=== PATIENT | female | born 1935 | race Caucasian/White ===

== ENCOUNTER 2018-03-16 10:58 | Emergency (ER) | payer MEDICARE ==
[~2018-03-16] VITALS: Ht 160 cm; Wt 90.7 kg
[~2018-03-16 10:58] MED LIST: ADULT LOW DOSE81 MG; ALPRAZOLAM 0.0.25 M1 PO; ALTACE10 M1; ALTACE10 M1 PO; ALTACE10 MG PO; AMBIEN 10 MG TA10 MG PO; ANTACID500 MG; ASPIR 8181 MG PO; ASPIRIN EC81 M1 PO; AZITHROMYCIN 2250 MG PO; BACTRIM DS TAB1 EACH PO; BONIVA150 MG PO; BUSPAR 5 MG TABL5 M1 PO; BUSPAR15 MG; BUSPIRONE HCL10 MG PO; CALCIUM; CALCIUM 600 +1 EAC5 PO; CALCIUM PO; CENTRUM TABLET1 EACH; COLACE100 MG PO; CRESTOR20 MG PO; ENOXAPARIN30 MG/0.3 SUBQ; FENTANYL PA25 MCG/HR TRANSDERM; GABAPENTIN 100100 MG PO; GLUCOPHAGE500 MG PO; HYDROCODON-ACE1 EAC8; IBUPROFEN 600600 M1 PO; LANTUS SUBQ; LEVOTHROID100 MC1 PO; LEVOTHYROID PO; LIDODERM 5%1 PATC1 TRANSDERM; LOPRESSOR100 M1 PO; LOPRESSOR100 MG PO; LYRICA 50 MG50 MG; LYRICA 50 MG50 MG PO; METFORMIN HCL500 M2 PO; NEURONTIN 300300 M1 PO; NEXIUM40 MG PO; NOVOLOG100 UNIT/1 SUBQ; PERCOCET 5-3251 EACH PO; PROCHLORPERAZINE5 M1 PO; STOOL SOFTENER240 MG; TAMSULOSIN HCL0.4 M1 PO; TIROSINT100 MCG; TOPROL XL100 MG; ULTRAM 50MG TAB50 MG PO; ZETIA10 MG PO; ZOFRAN ODT4 MG PO
[2018-03-16 11:27] LABS: ABSOLUTE BASOPHILS 0.1 thou/uL (0.0-0.2); ABSOLUTE EOSINOPHILS 0.2 thou/uL (0.0-0.7); ABSOLUTE LYMPHOCYTES 1.5 thou/uL (0.8-5.3); ABSOLUTE MONOCYTES 0.5 thou/uL (0.0-1.2); ABSOLUTE NEUTROPHILS 3.9 thou/uL (1.6-8.1); EOSINOPHILS 3.6 %; HEMATOCRIT 43.4 % (37.0-47.0); HEMOGLOBIN 14.4 gm/dL (12.0-15.0); LYMPHOCYTES 24.6 %; MCH 28.8 pg (26.0-34.0); MCHC 33.2 g/dL (28.0-37.0); MCV 86.8 fL (80.0-100.0); MPV 8.3 fl. (7.2-11.1); NUCLEATED RBCS 0 /100WBC; PLATELET COUNT* 272 thou/uL (150-400); POLYS 62.8 %; RDW-CV 14.5 % (10.5-14.5); WBC 6.2 thou/uL (4.0-11.0)
[2018-03-16 11:34] LABS: CALCIUM 9.9 mg/dL (8.5-10.1); CREATININE 0.5 mg/dL (0.6-1.3); POTASSIUM 4.2 mmol/L (3.5-5.1)
[2018-03-16 11:46] LABS: ALBUMIN 3.4 g/dL (3.4-5.0); TOTAL BILIRUBIN 0.3 mg/dL (<0.1-1.0); TOTAL PROTEIN 7.4 g/dL (6.4-8.2)
[2018-03-16] MEDS ORDERED: DOXYCYCLINE 10100 MG PO (11:57)
[2018-03-16] MEDS ORDERED: TESSALON PERLE100 MG PO (11:57)
[2018-03-16 12:51] VITALS: BP 152/52
--- NOTE | 2018-03-16 15:10 | EKG ---
[place] [address] ELECTROCARDIOGRAM REPORT Name: DONNA BRUNNER [facility] [id number] Admission: 03/16/18 Attend Phys: Discharge: 03/16/18 Date of : 35 Report #: [id number] THIS REPORT FOR: //name// [facility] ED Test Date: 2018-03-16 Test Time: 11:22:01 Pat Name: DONNA BRUNNER Department: Room: Gender: F Envelope Stuffer: RAEGAN Ayoub : 1935 Requested By: Sandoval Fraser Order Number: [id number] MD: Jefferson Lemons Measurements Intervals [place] Rate: 60 P: 53 MI: 155 QRS: 46 QRSD: 92 T: 83 QT: 446 QTc: 446 Interpretive Statements Sinus rhythm Consider left atrial enlargement Probable LVH with secondary repol abnrm Compared to ECG 08/09/2017 08:41:02 No significant changes Electronically Signed On 03-16-2018 15:10:36 CDT by Jefferson Lemons [email or web address] <ELECTRONICALLY SIGNED> By: Jefferson Lemons MD, [facility] 03/16/18 1510 1122 112 Jefferson Lemons MD, [facility] /EPI
== END 2018-03-16 12:52 | disposition home or self-care (01) ==
LOC: M.ERS 10:58
PROVIDERS: Nurse Practitioner Psychiatric/Mental Health
DX: J06.9 Acute upper respiratory infection, unspecified (principal); I10 Essential (primary) hypertension; E78.00 Pure hypercholesterolemia, unspecified; E03.9 Hypothyroidism, unspecified; K21.9 Gastro-esophageal reflux disease without esophagitis; E11.9 Type 2 diabetes mellitus without complications; Z79.4 Long term (current) use of insulin; Z88.8 Allergy status to other drugs, medicaments and biological substances; Z88.5 Allergy status to narcotic agent; Z88.0 Allergy status to penicillin

== ENCOUNTER 2018-04-29 07:15 | Outpatient (CLI) | payer MEDICARE ==
[~2018-04-29] VITALS: Ht 154.9 cm; Wt 93.0 kg
[~2018-04-29 07:15] MED LIST changes: +DOXYCYCLINE 10100 MG PO; +TESSALON PERLE100 MG PO
[2018-04-29 07:43] VITALS: BP 177/74
[2018-04-29 08:06] LABS: HEMATOCRIT 41.1 % (37.0-47.0); HEMOGLOBIN 13.5 gm/dL (12.0-15.0); MCH 28.7 pg (26.0-34.0); MCHC 32.8 g/dL (28.0-37.0); MCV 87.6 fL (80.0-100.0); RBC 4.69 mil/uL (4.20-5.00); RDW-CV 14.8 % (10.5-14.5); WBC 5.7 thou/uL (4.0-11.0)
[2018-04-29] MEDS ORDERED: FOSAMAX 70 MG T70 MG PO (08:06)
[2018-04-29 08:27] LABS: APTT 25.2 Seconds (25.0-31.3); PROTIME 9.8 Seconds (9.20-11.50)
[2018-04-29 08:34] LABS: ANION GAP 9 mmol/L (7-16); BUN 16 mg/dL (7-18); CALCIUM 8.5 mg/dL (8.5-10.1); CHLORIDE 102 mmol/L (98-107); CO2 27 mmol/L (21-32); CREATININE 0.7 mg/dL (0.6-1.3); GLUCOSE 394 mg/dL (70-99); POTASSIUM 4.2 mmol/L (3.5-5.1); SODIUM 138 mmol/L (136-145)
[2018-04-29 08:39] LABS: ALBUMIN 3.4 g/dL (3.4-5.0); ALKALINE PHOSPHATASE 120 U/L (46-116); CHOLESTEROL 185 mg/dL (<200); HDL CHOLESTEROL 54 mg/dL (>40); LDL CHOLESTEROL 112 mg/dL (<100); SERUM ASSESSMENT Clear; SGOT 22 U/L (15-37); SGPT 26 U/L (30-65); TC:HDL 3.4 Ratio (Not establshd); TOTAL BILIRUBIN 0.4 mg/dL (<0.1-1.0); TOTAL PROTEIN 7.2 g/dL (6.4-8.2); TRIGLYCERIDE 95 mg/dL (<150); VLDL 19 mg/dL (<40)
[2018-04-29 10:40] VITALS: BP 155/68
[2018-04-29 11:28] VITALS: BP 101/72
[2018-04-29 11:54] VITALS: BP 101/72
--- NOTE | 2018-04-29 13:41 | EKG ---
[place] [address] ELECTROCARDIOGRAM REPORT Name: DONNA BRUNNER Room: [address]#: [id number] Admission: 04/29/18 Attend Phys: Ricco Espinoza MD, Discharge: Date of : 35 Report #: [id number] THIS REPORT FOR: //name// [facility] Test Date: 2018-04-29 Test Time: 07:50:01 Pat Name: DONNA BRUNNER Department: Room: Gender: F Balloon Seller: : 1935 Requested By: Ricco Espinoza Order Number: [id number] Reading MD: Tobias Slade Measurements Intervals [place] Rate: 79 P: 60 MT: 154 QRS: 55 QRSD: 88 T: 92 QT: 416 QTc: 477 Interpretive Statements Sinus rhythm Abnormal R-wave progression, early transition Consider left ventricular hypertrophy Nonspecific T abnormalities, lateral leads Compared to ECG 03/16/2018 11:22:01 T-wave abnormality now present Electronically Signed On 04-29-2018 13:41:22 CDT by Tobias Slade [email or web address] <ELECTRONICALLY SIGNED> By: Tobias Slade MD, FACC 04/29/18 1341 0750 0750 Tobias Slade MD, FAC /EPI
--- NOTE | 2018-05-01 12:34 | NUR ---
Spoke with patient states she is doing well, no signs of infection of right groin cath site. Has all her medications. Did not have any questions or concerns.
--- NOTE | 2018-05-02 10:50 | CARD ---
[address] [address] CARDIAC CATH REPORT Name: DONNA BRUNNER [address] [id number] Admission: 04/29/18 Attend Phys: Ricco Espinoza MD, Discharge: Date of : 35 Report #: [id number] THIS REPORT FOR: //name// APPROVED REPORT Study performed: 04/29/2018 08:22:11 Patient Details Patient Status: Out-Patient Room #: The patient is a 83 year-old female Event Personnel Ricco Espinoza Coffee Farmer, Vania Bettencourt RN Tower Hand, Rashida Tariq RTR Monitor Procedures Performed Art Access - R femoral artery*; left heart catheterization left ventriculography and selective coronary arteriography Indication Positive stress test, Chest pain Risk Factors Obesity, Hypercholesterolemia, Hypertension Procedure Narrative The patient was brought electively to the Cardiac Catheterization Laboratory and was prepped and draped in a sterile manner. The right femoral was infiltrated with 1% Lidocaine subcutaneous anesthesia. A [place] 6 FR sheath was inserted into the RIGHT FEMORAL ARTERY. Coronary angiography was performed using coronary diagnostic catheters. The right coronary system was accessed and visualized with a 6FR JR 4 catheter. The left coronary system was accessed and visualized with a 6FR JL 4 catheter. The left ventricle was accessed and visualized with a 6FR PIGTAIL catheter. Left ventricular/Aortic Valve gradient assessed via catheter pullback. Closure device was deployed with a Fr Mynx 6Fr/7Fr. There was no hematoma. Intraoperative Conscious Sedation Sedation start time: 9:58 Case end Time: 10:22 Fentanyl 25 mcg Vers[place] 2 [place] [address] CARDIAC CATH REPORT Name: DONNA BRUNNER Room: [address]#: [id number] Admission: 04/29/18 Attend Phys: Ricco Espinoza MD, Discharge: Date of : 35 Report #: [id number] Fluoro Time: 2.8 minutes Dose: DAP 91936 cGycm2 681.25 mGy Contrast Type and Amount: Visipaque 140 ml Coronary Angiography The patient's coronary anatomy is right dominant. Diagnostic Cath Left Main 0% narrowing LAD 30% mid vessel narrowing Circumflex 30% mid vessel narrowing Right Coronary Dominant vessel with 30% mid vessel narrowing Hemodynamics The aortic pressure is 172/68 mmHg with a mean of 93 mmHg. The left ventricular pressure is 165/2 mmHg with a mean of mmHg. The left ventricular end diastolic pressure is 10 mmHg. Conclusion #1 modest atherosclerotic coronary artery disease characterized by the following A 30% mid LAD narrowing B 30% narrowing in the midportion of the circumflex C dominant right coronary artery with 30% mid vessel narrowing #2 normal left ventricular systolic function, estimated ejection fraction being 65% #3 moderate systemic systolic hypertension with normal left ventricular end-diastolic pressure at rest Recommendations Cardiac Risk Reduction Program Diagnostic Cath Approved by: Ricco Espinoza MD Date/Time: 05/02/18 1049 hrs. <ELECTRONICALLY SIGNED> By: Ricco Espinoza MD, FACC 05/02/18 1050 1050 1050Jodaniel Espinoza MD, FACC /INF
== END 2018-04-29 15:12 | disposition home or self-care (01) ==
LOC: M.CL 07:15 → M.TBA-CV 10:35 → M.CL 15:12
PROVIDERS: Internal Medicine
DX: I25.10 Atherosclerotic heart disease of native coronary artery without angina pectoris (principal); I10 Essential (primary) hypertension; E11.9 Type 2 diabetes mellitus without complications; E78.00 Pure hypercholesterolemia, unspecified; E66.09 Other obesity due to excess calories; E03.9 Hypothyroidism, unspecified; Z98.41 Cataract extraction status, right eye; Z98.42 Cataract extraction status, left eye; Z96.1 Presence of intraocular lens; Z96.649 Presence of unspecified artificial hip joint; Z90.710 Acquired absence of both cervix and uterus; Z79.899 Other long term (current) drug therapy; Z88.0 Allergy status to penicillin; Z88.8 Allergy status to other drugs, medicaments and biological substances; Z79.82 Long term (current) use of aspirin; Z79.4 Long term (current) use of insulin

== ENCOUNTER 2018-08-16 16:29 | Emergency (ER) | payer MEDICARE ==
[~2018-08-16] VITALS: Ht 157.5 cm; Wt 95.3 kg
[~2018-08-16 16:29] MED LIST changes: +FOSAMAX 70 MG T70 MG PO
[2018-08-16] MEDS ORDERED: KEFLEX500 M1 PO (17:24)
[2018-08-16 17:35] VITALS: BP 176/61
== END 2018-08-16 17:36 | disposition home or self-care (01) ==
LOC: M.ERS 16:29
DX: S91.332A Puncture wound without foreign body, left foot, initial encounter (principal); I10 Essential (primary) hypertension; E78.00 Pure hypercholesterolemia, unspecified; K21.9 Gastro-esophageal reflux disease without esophagitis; J45.909 Unspecified asthma, uncomplicated; E11.9 Type 2 diabetes mellitus without complications; Z96.649 Presence of unspecified artificial hip joint; Z79.4 Long term (current) use of insulin; Z88.0 Allergy status to penicillin; Z88.5 Allergy status to narcotic agent; Z88.8 Allergy status to other drugs, medicaments and biological substances; W46.0XXA Contact with hypodermic needle, initial encounter; Y93.89 Activity, other specified; Y92.89 Other specified places as the place of occurrence of the external cause; Y99.8 Other external cause status

== ENCOUNTER → 2019-05-13 | Outpatient (CLI) | payer MEDICARE ==
[~2019-05-13] MED LIST changes: +KEFLEX500 M1 PO
== END ==
LOC: M.RAD 10:13
DX: M16.12 Unilateral primary osteoarthritis, left hip (principal); Z96.642 Presence of left artificial hip joint

== ENCOUNTER 2019-10-18 08:01 | Inpatient (IN) | payer MEDICARE ==
[~2019-10-18] VITALS: Ht 154.9 cm; Wt 95.7 kg
[~2019-10-18 08:01] MED LIST changes: -LEVOTHYROID PO; +TIROSINT100 MCG PO
[2019-10-18 08:11] VITALS: BP 116/62
[2019-10-18 08:49] LABS: ABSOLUTE BASOPHILS 0.1 thou/uL (0.0-0.2); ABSOLUTE EOSINOPHILS 0.2 thou/uL (0.0-0.7); ABSOLUTE LYMPHOCYTES 0.9 thou/uL (0.8-5.3); ABSOLUTE MONOCYTES 0.3 thou/uL (0.0-1.2); BASOPHILS 1.2 %; EOSINOPHILS 3.3 %; HEMATOCRIT 40.9 % (37.0-47.0); HEMOGLOBIN 13.8 gm/dL (12.0-15.0); LYMPHOCYTES 14.2 %; MCH 29.4 pg (26.0-34.0); MCHC 33.8 g/dL (28.0-37.0); MCV 86.8 fL (80.0-100.0); MPV 8.5 fl. (7.2-11.1); NUCLEATED RBCS 0 /100WBC; PLATELET COUNT* 293 thou/uL (150-400); POLYS 76.3 %; RBC 4.71 mil/uL (4.20-5.00); RDW-CV 14.5 % (10.5-14.5); WBC 6.6 thou/uL (4.0-11.0)
[2019-10-18 08:54] LABS: CALCIUM 8.8 mg/dL (8.5-10.1); CREATININE 0.8 mg/dL (0.6-1.3); POTASSIUM 4.1 mmol/L (3.5-5.1)
[2019-10-18 09:03] LABS: APTT 24.7 Seconds (25.0-31.3); PROTIME 9.9 Seconds (9.20-11.50)
[2019-10-18 09:04] LABS: ALBUMIN 3.4 g/dL (3.4-5.0); TOTAL BILIRUBIN 0.3 mg/dL (<0.1-1.0); TOTAL PROTEIN 7.2 g/dL (6.4-8.2)
[2019-10-18 12:36] LABS: INFLUENZA A ANTIGEN Negative (Negative); INFLUENZA B ANTIGEN Negative (Negative)
[2019-10-18 16:03] LABS: CHOLESTEROL 154 mg/dL (<200); HDL CHOLESTEROL 50 mg/dL (>40); LDL CHOLESTEROL 88 mg/dL (<100); SERUM ASSESSMENT Clear; TC:HDL 3.1 Ratio (Not establshd); TRIGLYCERIDE 82 mg/dL (<150); VLDL 16 mg/dL (<40)
[2019-10-18 16:19] VITALS: BP 189/56
--- NOTE | 2019-10-18 17:02 | 2DMMODE ---
[place] [address] 2 D/M-MODE ECHOCARDIOGRAM Name: DONNA BRUNNER Room: [place] [address] ADM IN .R.#: [id number] Admission: 10/18/19 Attend Phys: Elpidio Lay, Discharge: Date of : 35 Date of Service: 10/18/19 170 Report #: [id number] THIS REPORT FOR: //name// APPROVED REPORT Study performed: 10/18/2019 14:49:30 EXAM: Comprehensive 2D, Doppler, and color-flow Echocardiogram Patient Location: Bedside BSA: 1.93 HR: 79 bpm BP: 174/82 mmHg Other Information Study Quality: Fair Indications Dyspnea 2D Dimensions IVSd: 14.08 (7-11mm) LVOT Diam: 17.52 (18-24mm) LVDd: 45.49 mm PWd: 12.16 (7-11mm) Ascending Ao: 29.33 (22-36mm) LVDs: 29.91 (25-40mm) Aortic Root: 27.88 mm Volumes Left Atrial Volume (Systole) LA ESV Index: 34.60 mL/m2 Aortic Valve AoV Peak Aldair.: 1.87 m/s AO Peak Gr.: 13.95 mmHg LVOT Max P.31 mmHg AO Mean Gr.: 7.07 mmHg LVOT Mean P.86 mmHg LVOT Max V: 1.26 m/s AO V2 VTI: 37.69 cm LVOT Mean V: 0.76 m/s ROMELIA (VTI): 1.85 cm2 LVOT V1 VTI: 28.93 cm Mitral Valve MV Mean Gr.: 3.84 mmHg E/A Ratio: 1.24 MV Decel. Time: 223.77 ms MV E Max Aldair.: 1.44 m/s MV PHT: 64.89 ms MVA (PHT): 3.39 [place]2 [place] [address] 2 D/M-MODE ECHOCARDIOGRAM Name: DONNA BRUNNER Room: [address] IN [facility].#: [id number] Admission: 10/18/19 Attend Phys: Elpidio Lay, Discharge: Date of : 35 Date of Service: 10/18/19 170 Report #: [id number] TDI E/Lateral E': 24.00 E/Medial E': 28.80 Medial E' Aldair.: 0.05 m/s Lateral E' Aldair.: 0.06 m/s Pulmonary Valve PV Peak Aldair.: 0.88 m/s PV Peak Gr.: 3.08 mmHg Tricuspid Valve RAP Estimate: 5.00 mmHg TR Peak Gr.: 29.98 mmHg RVSP: 34.98 mmHg PA Pressure: 34.98 mmHg Left Ventricle The left ventricle is normal size. There is normal LV segmental wall motion. Mild concentric left ventricular hypertrophy. Left ventricular systolic function is normal. The left ventricular ejection fraction is within the normal range. LVEF is 55-60%. The left ventricular diastolic function is normal. Right Ventricle The right ventricle is normal size. The right ventricular systolic function is normal. Atria Left atrium is mildly dilated. The right atrium size is normal. Aortic Valve The aortic valve is normal in structure. No aortic regurgitation is present. There is no aortic valvular stenosis. Mitral Valve Severe mitral annular calcification. There is no mitral valve regurgitation noted. No evidence of mitral valve stenosis. Tricuspid Valve The tricuspid valve is normal in structure. Trace tricuspid regurgitation. Pulmonic Valve The pulmonary valve is normal in structure. There is no pulmonic valvular regurgitation[place] [address] 2 D/M-MODE ECHOCARDIOGRAM Name: DONNA BRUNNER Room: [address] IN [facility]#: [id number] Admission: 10/18/19 Attend Phys: Elpidio Lay, Discharge: Date of : 35 Date of Service: 10/18/19 1701 Report #: [id number] The aortic root is normal in size. IVC is normal in size and collapses >50% with inspiration. Pericardium There is no pericardial effusion. <Conclusion> The left ventricle is normal size. Mild concentric left ventricular hypertrophy. Left ventricular systolic function is normal. The left ventricular ejection fraction is within the normal range. LVEF is 55-60%. The left ventricular diastolic function is normal. The right ventricle is normal size. Left atrium is mildly dilated. The right atrium size is normal. The aortic valve is normal in structure. Severe mitral annular calcification. There is no mitral valve regurgitation noted. No evidence of mitral valve stenosis. The tricuspid valve is normal in structure. IVC is normal in size and collapses >50% with inspiration. There is no pericardial effusion. There is normal LV segmental wall motion. <ELECTRONICALLY SIGNED> By: Ricco Espinoza MD, FACC 10/18/191700 00 00 Ricco Espinoza MD, FACC /INF
--- NOTE | 2019-10-18 17:11 | EKG ---
[place] [address] ELECTROCARDIOGRAM REPORT Name: DONNA BRUNNER Room: [place] [address] ADM IN .R.#: [id number] Admission: 10/18/19 Attend Phys: Elpidio Lay MD Discharge: Date of : 35 Report #: [id number] THIS REPORT FOR: //name// [facility] ED Test Date: 2019-10-18 Test Time: 08:07:03 Pat Name: DONNA BRUNNER Department: Room: [facility] Gender: F Stone Polisher Hand: : 1935 Requested By: Jaqueline Zhou Order Number: [id number] MD: Tobias Slade Measurements Intervals [place] Rate: 76 P: 52 AR: 155 QRS: 55 QRSD: 90 T: 75 QT: 417 QTc: 469 Interpretive Statements Sinus rhythm Probable LVH with secondary repol abnrm Baseline wander in lead(s) V1,V2,V3,V4,V5 Compared to ECG 04/29/2018 07:50:01 T-wave abnormality no longer present Electronically Signed On 10-18-2019 17:11:06 FURNACE KEEPER by Tobias Slade [email or web address] <ELECTRONICALLY SIGNED> By: Tobias Slade MD, FACC 10/18/19 1711 6 08 Tobias Slade MD, FACC /EPI
[2019-10-18 18:36] VITALS: BP 184/59
[2019-10-18 19:30] VITALS: BP 197/68
[2019-10-19 00:14] VITALS: BP 156/66
[2019-10-19 04:25] VITALS: BP 152/79
--- NOTE | 2019-10-19 04:39 | NUR ---
ASSUMED CARE OF PATIENT AT APPROX 1930, PATIENT ARRIVED TO FLOOR AT APPROX 1850. ADMISSION HISTORY AND ASSESSMENT COMPLETED AND CHARTED. VSS ON 2 LITERS 02. PATIENT STATED THAT SHE DID NOT NEED FALL PRECAUTIONS IN PLACE. I TOLD HER THAT WE USE PRECAUTIONS FOR PATIENTS THAT HAVE COME IN WITH DIZZINESS OR FOR BEING LIGHT HEADED TO ENSURE THAT THEY DO NOT FALL. PATIENT SAID "I DON'T NEED THOSE, I GET AROUND FINE AND EVEN TAKE DANCE CLASSES." EDUCATED PATIENT ON HOSPITAL POLICY FOR FALL PREVENTIONS. SHE STATED AGAIN THAT THOSE PRECAUTIONS WERE NOT NEEDED. PATIENT ALSO STATED THAT SHE WOULD LIKE TO MANAGE HER INSULIN ADMINISTRATION BUT THAT SHE HAD FORGOTTEN HER LONG ACTING INSULIN AT HOME, DOSAGE GIVEN FROM [facility]. AMBULATION ASSESSED WITH PATIENT WALKING IN THE ROOM, STEADY GATE NOTED. PATIENT HAD NO COMPLAINTS THROUGHOUT THE SHIFT. TRACING NSR ON MONITOR. CALL LIGHT IS WITHIN REACH. HOURLY ROUNDS COMPLETED. WILL CONTINUE WITH PLAN OF CARE.
[2019-10-19 05:28] LABS: ABSOLUTE BASOPHILS 0.1 thou/uL (0.0-0.2); ABSOLUTE EOSINOPHILS 0.3 thou/uL (0.0-0.7); ABSOLUTE LYMPHOCYTES 1.4 thou/uL (0.8-5.3); ABSOLUTE MONOCYTES 0.4 thou/uL (0.0-1.2); ABSOLUTE NEUTROPHILS 3.4 thou/uL (1.6-8.1); EOSINOPHILS 5.2 %; HEMOGLOBIN 13.1 gm/dL (12.0-15.0); LYMPHOCYTES 25.4 %; MCHC 33.7 g/dL (28.0-37.0); MCV 85.9 fL (80.0-100.0); MONOCYTES 7.6 %; MPV 8.8 fl. (7.2-11.1); NUCLEATED RBCS 0 /100WBC; PLATELET COUNT* 281 thou/uL (150-400); POLYS 59.8 %; RBC 4.54 mil/uL (4.20-5.00); RDW-CV 14.4 % (10.5-14.5); WBC 5.6 thou/uL (4.0-11.0)
[2019-10-19 05:34] LABS: CALCIUM 8.5 mg/dL (8.5-10.1); CREATININE 0.6 mg/dL (0.6-1.3); POTASSIUM 3.9 mmol/L (3.5-5.1)
--- NOTE | 2019-10-19 10:31 | NUR ---
CM COMPLETED INITIAL ASSESSMENT TO DISCUSS D/C PLAN. PT A&O. CONVERSATONAL. PT STATES SHE IS D/C' TODAY. PT STATED SHE IS "VERY" ACTIVE. SHE DRIVES AND DANCES 2X/WK. PT INDEPENDENT W/ADLS. PT HAS 0 DMES PT DENIES HX W/HH. [facility] HAVING SURGERY. NO ANTICIPATED NEEDES.
[2019-10-19] MEDS ORDERED: MULTI VITAMIN1 EACH PO (12:30)
[2019-10-19 12:34] VITALS: BP 154/82
[2019-10-19 12:51] VITALS: BP 154/82
== END 2019-10-19 14:24 | disposition home or self-care (01) | DRG 313 ==
LOC: M.ERS 08:01 → M.TBA-ER 11:38 → M.2W 11:38
PROVIDERS: Personal Emergency Response Attendant; Registered Nurse; ADMIT Internal Medicine
DX: R07.89 Other chest pain (principal); I10 Essential (primary) hypertension; Z96.649 Presence of unspecified artificial hip joint; K21.9 Gastro-esophageal reflux disease without esophagitis; K59.00 Constipation, unspecified; J45.909 Unspecified asthma, uncomplicated; E03.9 Hypothyroidism, unspecified; E11.65 Type 2 diabetes mellitus with hyperglycemia; E78.00 Pure hypercholesterolemia, unspecified; I34.0 Nonrheumatic mitral (valve) insufficiency; M19.90 Unspecified osteoarthritis, unspecified site; E66.9 Obesity, unspecified; Z68.39 Body mass index [BMI] 39.0-39.9, adult; Z98.42 Cataract extraction status, left eye; Z98.41 Cataract extraction status, right eye; Z90.710 Acquired absence of both cervix and uterus; Z88.6 Allergy status to analgesic agent; Z88.0 Allergy status to penicillin; Z88.8 Allergy status to other drugs, medicaments and biological substances; Z79.82 Long term (current) use of aspirin; Z79.899 Other long term (current) drug therapy

== ENCOUNTER → 2020-10-02 | Outpatient (CLI) | payer MEDICARE ==
[~2020-10-02] VITALS: Ht 154.9 cm; Wt 98.4 kg
[2020-10-02] VITALS (9 sets, daily range): BP systolic 118–193; BP diastolic 40–86
[~2020-10-02] MED LIST changes: +CALCIUM500 MG PO; +MULTI VITAMIN1 EACH PO; +NEXIUM20 MG PO; +RAMIPRIL10 MG PO
[2020-10-02 10:16] LABS: HEMATOCRIT 39.8 % (37.0-47.0); HEMOGLOBIN 13.2 gm/dL (12.0-15.0); MCH 28.8 pg (26.0-34.0); MCHC 33.1 g/dL (28.0-37.0); MCV 87.2 fL (80.0-100.0); MPV 8.3 fl. (7.2-11.1); RBC 4.57 mil/uL (4.20-5.00); RDW-CV 14.5 % (10.5-14.5); WBC 7.6 thou/uL (4.0-11.0)
[2020-10-02 10:27] LABS: ANION GAP 8 mmol/L (7-16); BUN 11 mg/dL (7-18); CALCIUM 9.1 mg/dL (8.5-10.1); CHLORIDE 102 mmol/L (98-107); CO2 29 mmol/L (21-32); CREATININE 0.7 mg/dL (0.6-1.3); GLUCOSE 338 mg/dL (70-99); POTASSIUM 3.9 mmol/L (3.5-5.1); SODIUM 139 mmol/L (136-145)
[2020-10-02 10:31] LABS: APTT 23.6 Seconds (25.0-31.3); PROTIME 10.3 Seconds (9.20-11.50)
[2020-10-02 10:33] LABS: ALBUMIN 3.4 g/dL (3.4-5.0); ALKALINE PHOSPHATASE 116 U/L (46-116); CHOLESTEROL 175 mg/dL (<200); HDL CHOLESTEROL 60 mg/dL (>40); LDL CHOLESTEROL 102 mg/dL (<100); SGOT 27 U/L (15-37); SGPT 30 U/L (30-65); TC:HDL 2.9 Ratio (Not establshd); TOTAL BILIRUBIN 0.4 mg/dL (<0.1-1.0); TOTAL PROTEIN 7.1 g/dL (6.4-8.2); TRIGLYCERIDE 65 mg/dL (<150); VLDL 13 mg/dL (<40)
[2020-10-02 10:39] LABS: SERUM ASSESSMENT Clear
--- NOTE | 2020-10-02 13:53 | CARD ---
[address] [address] CARDIAC CATH REPORT Name: DONNA BRUNNER [id number] Admission: 10/02/20 Attend Phys: Ricco Espinoza MD, Discharge: Date of : 35 Report #: [id number] THIS REPORT FOR: cc: Yudi North MD, Katrina MD ~ Ricco Espinoza MD [facility] APPROVED REPORT Study performed: 10/02/2020 11:22:59 Patient Details Patient Status: Out-Patient Room #: The patient is a 85 year-old female Event Personnel Ricco Espinoza Healthcare Risk Control Consultant, Jareth Goodwin RN Roofer [place], Asha Zepeda RN Monitor, Soto Santillan DOUBLE CORNER CUTTER Scrub Procedures Performed Art Access - L femoral artery* Left Heart Cath w/or w/o Coronaries [id number] [facility] Hemostasis w/ Mynx Indication Positive stress test, Chest pain Procedure Narrative The patient was brought electively to the Cardiac Catheterization Laboratory and was prepped and draped in a sterile manner. The left femoral was infiltrated with 1% Lidocaine subcutaneous anesthesia. A [place] 6 FR sheath was inserted into the left femoral artery. Coronary angiography was performed using coronary diagnostic catheters. The right coronary system was accessed and visualized with a 3DRC 6frDiagnostic catheter. The left coronary system was accessed and visualized with a JL4 6frDiagnostic catheter. The left ventricle was accessed and visualized with a PC: Pig 6frDiagnostic catheter. Left ventricular/Aortic Valve gradient assessed via catheter pullback. Pre-demployment femoral angiogram was performed . Closure device was deployed with a 6 Fr Mynx. The patient tolerated the procedure well and there were no complications associated with the procedure. There was no hematoma. Intraoperative Conscious Sedation Sedation start time: 12:32 Case end Time: [place] [address] CARDIAC CATH REPORT Name: DONNA BRUNNER Room: [facility]#: [id number] Admission: 10/02/20 Attend Phys: Ricco Espinoza MD, Discharge: Date of : 35 Report #: [id number] 12:51 Versed 1 mg Fluoro Time: 4.4 minutes Dose: DAP 36180 cGycm2 837 mGy Contrast Type and Amount: Visipaque 150 ml Diagnostic Cath Left Main 0% narrowing LAD 30% mid LAD narrowing Circumflex Nondominant vessel with 30% mid vessel narrowing Right Coronary Large dominant vessel with 30% ostial proximal narrowing and 40% mid vessel narrowing Left Ventriculography The left ventricle is normal in size with normal contractility. The left ventricular ejection fraction is estimated to be 70%. Left ventricular wall motion abnormalities are not present. There is no mitral insufficiency. Marked mitral annular calcification is noted Hemodynamics The aortic pressure is 193/78 mmHg with a mean of 113 mmHg. The left ventricular pressure is 192/1 mmHg with a mean of mmHg. The left ventricular end diastolic pressure is 18 mmHg. There was no gradient across the aortic valve upon pullback. Conclusion 1. Modest coronary artery disease characterized by the following: A 30% mid LAD narrowing B 30% narrowing in the midportion of the nondominant circumflex C large dominant right coronary artery with 30% ostial proximal narrowing and 40% mid vessel narrowing 2. Hyperdynamic left ventricular systolic function, estimated ejection fraction being 70% 3. Moderately severe systemic systolic hypertension 4. Modest elevation of left ventricular end-diastolic [place] [address] CARDIAC CATH REPORT Name: DONNA BRUNNER Room: [facility]#: [id number] Admission: 10/02/20 Attend Phys: Ricco Espinoza MD, Discharge: Date of : 35 Report #: [id number] Recommendations Cardiac Risk Reduction Program Aggressive Medical Therapy Diagnostic Cath Approved by: Ricco Espinoza MD Date/Time: 10/02/2020 13:51:59 <ELECTRONICALLY SIGNED> By: Ricco Espinoza MD, [facility] 10/02/20 1353 1353 1353Ricco Espinoza MD, FACC /INF
--- NOTE | 2020-10-02 14:46 | 2DMMODE ---
[place] [address] 2 D/M-MODE ECHOCARDIOGRAM Name: DONNA BRUNNER Room: [facility]#: [id number] Admission: 10/02/20 Attend Phys: Fish Gee Discharge: Date of : 35 Date of Service: 10/02/20 1445 Report #: [id number] THIS REPORT FOR: cc: Yudi North MD, Katrina MD Holkins, John M. MD [facility] ~ APPROVED REPORT Study performed: 10/02/2020 13:47:51 EXAM: Comprehensive 2D, Doppler, and color-flow Echocardiogram Patient Location: Out-Patient BSA: 1.96 HR: 70 bpm BP: 129/48 mmHg Rhythm: NSR Other Information Study Quality: Good 2D Dimensions IVSd: 12.85 (7-11mm) LVOT Diam: 19.33 (18-24mm) LVDd: 41.69 mm PWd: 11.04 (7-11mm) Ascending Ao: 31.67 (22-36mm) LVDs: 25.32 (25-40mm) Aortic Root: 31.29 mm Volumes Left Atrial Volume (Systole) LA ESV Index: 58.00 mL/m2 Aortic Valve AoV Peak Aldair.: 1.83 m/s AO Peak Gr.: 13.35 mmHg LVOT Max P.90 mmHg AO Mean Gr.: 7.54 mmHg LVOT Mean P.07 mmHg LVOT Max V: 1.41 m/s AO V2 VTI: 34.31 cm LVOT Mean V: 0.93 m/s ROMELIA (VTI): 2.29 cm2 LVOT V1 VTI: 26.71 cm Mitral Valve MV Mean Gr.: 3.23 mmHg E/A Ratio: 1.31 MV Decel. Time: 367.49 ms MV E Max Aldair.: 1.41 m/[place] [address] 2 D/M-MODE ECHOCARDIOGRAM Name: DONNA BRUNNER Room: [facility]#: [id number] Admission: 10/02/20 Attend Phys: Fish Gee Discharge: Date of : 35 Date of Service: 10/02/20 1445 Report #: [id number] MV PHT: 106.57 ms MVA (PHT): 2.06 cm2 TDI E/Lateral E': 15.67 E/Medial E': 28.20 Medial E' Aldair.: 0.05 m/s Lateral E' Aldair.: 0.09 m/s Pulmonary Valve PV Peak Aldair.: 1.30 m/s PV Peak Gr.: 6.71 mmHg Tricuspid Valve RAP Estimate: 5.00 mmHg TR Peak Gr.: 36.55 mmHg RVSP: 41.00 mmHg PA Pressure: 41.00 mmHg Left Ventricle The left ventricle is normal size. There is normal LV segmental wall motion. There is normal left ventricular wall thickness. Left ventricular systolic function is normal. The left ventricular ejection fraction is within the normal range. LVEF is 65%. The left ventricular diastolic function is normal. Right Ventricle The right ventricle is normal size. The right ventricular systolic function is normal. Atria Left atrium is moderately dilated. The right atrium size is normal. Aortic Valve The aortic valve is normal in structure. No aortic regurgitation is present. There is no aortic valvular stenosis. Mitral Valve Severe mitral annular calcification. There is no mitral valve regurgitation noted. No evidence of mitral valve stenosis. Tricuspid Valve The tricuspid valve is normal in structure. Mild tricuspid regurgitation. Moderate pulmonary hypertension. Pulmonic Valve The pulmonary valve is normal in structure. There is no pulmonic valvular [place] [address] 2 D/M-MODE ECHOCARDIOGRAM Name: DONNA BRUNNER Room: [facility]#: [id number] Admission: 10/02/20 Attend Phys: Fish Gee Discharge: Date of : 35 Date of Service: 10/02/20 1445 Report #: [id number] Great Vessels The aortic root is normal in size. IVC is normal in size and collapses >50% with inspiration. Pericardium There is no pericardial effusion. <Conclusion> The left ventricle is normal size. There is normal left ventricular wall thickness. Left ventricular systolic function is normal. The left ventricular ejection fraction is within the normal range. LVEF is 65%. The left ventricular diastolic function is normal. The right ventricle is normal size. Left atrium is moderately dilated. The aortic valve is normal in structure. Severe mitral annular calcification. There is no mitral valve regurgitation noted. No evidence of mitral valve stenosis. The tricuspid valve is normal in structure. Mild tricuspid regurgitation. Moderate pulmonary hypertension. IVC is normal in size and collapses >50% with inspiration. There is no pericardial effusion. There is normal LV segmental wall motion. <ELECTRONICALLY SIGNED> By: Ricco Espinoza MD, FACC 10/02/20 1445 1445 1445 Ricco Espinoza MD, FACC /INF
--- NOTE | 2020-10-02 15:15 | EKG ---
[place] [address] ELECTROCARDIOGRAM REPORT Name: DONNA BRUNNER Room: [facility]#: [id number] Admission: 10/02/20 Attend Phys: Fish Gee Discharge: Date of : 35 Date of Service: 10/02/20 1126 Report #: [id number] THIS REPORT FOR: //name// [facility] Test Date: 2020-10-02 Test Time: 11:26:57 Pat Name: DONNA BRUNNER Department: Room: Gender: F Rn Radiation Oncology: : 1935 Requested By: Ricco Espinoza Order Number: [id number] Reading MD: Ricco Espinoza Measurements Intervals [place] Rate: 75 P: 58 [place]: 148 QRS: 53 QRSD: 97 T: 60 QT: 423 QTc: 473 Interpretive Statements Sinus rhythm Probable LVH with secondary repol abnrm Baseline wander in lead(s) II,III,aVF,V5 Compared to ECG 10/18/2019 08:07:03 No significant changes Electronically Signed On 10-02-2020 15:15:01 BUILDING CARPENTER HELPER by Ricco Espinoza [email or web address] <ELECTRONICALLY SIGNED> By: Ricco Espinoza MD, [facility] 10/02/20 1515 1126 1126 Ricco Espinoza MD, [facility] /EPI
== END | disposition home or self-care (01) ==
LOC: M.CL 08:49
PROVIDERS: ATTEND Internal Medicine
DX: R94.39 Abnormal result of other cardiovascular function study (principal); R07.9 Chest pain, unspecified; I25.10 Atherosclerotic heart disease of native coronary artery without angina pectoris; I07.1 Rheumatic tricuspid insufficiency; I10 Essential (primary) hypertension; E11.9 Type 2 diabetes mellitus without complications; E78.00 Pure hypercholesterolemia, unspecified; E03.9 Hypothyroidism, unspecified; K21.9 Gastro-esophageal reflux disease without esophagitis; Z98.890 Other specified postprocedural states; Z79.899 Other long term (current) drug therapy; Z90.710 Acquired absence of both cervix and uterus; Z98.41 Cataract extraction status, right eye; Z98.42 Cataract extraction status, left eye; Z96.1 Presence of intraocular lens; Z96.649 Presence of unspecified artificial hip joint; Z88.0 Allergy status to penicillin; Z88.8 Allergy status to other drugs, medicaments and biological substances; Z20.828 Contact with and (suspected) exposure to other viral communicable diseases

== ENCOUNTER 2020-10-13 10:09 | Emergency (ER) | payer MEDICARE ==
[~2020-10-13] VITALS: Ht 157.5 cm; Wt 98.4 kg
[2020-10-13 10:25] VITALS: BP 170/73
[2020-10-13 11:22] LABS: ABSOLUTE BASOPHILS 0.1 thou/uL (0.0-0.2); ABSOLUTE EOSINOPHILS 0.1 thou/uL (0.0-0.7); ABSOLUTE LYMPHOCYTES 0.8 thou/uL (0.8-5.3); ABSOLUTE MONOCYTES 0.4 thou/uL (0.0-1.2); BASOPHILS 0.9 %; EOSINOPHILS 1.2 %; HEMATOCRIT 38.7 % (37.0-47.0); HEMOGLOBIN 12.9 gm/dL (12.0-15.0); LYMPHOCYTES 11.3 %; MCH 28.6 pg (26.0-34.0); MCHC 33.2 g/dL (28.0-37.0); MCV 86.1 fL (80.0-100.0); MONOCYTES 5.2 %; NUCLEATED RBCS 0 /100WBC; PLATELET COUNT* 282 thou/uL (150-400); POLYS 81.4 %; RDW-CV 14.2 % (10.5-14.5); WBC 7.4 thou/uL (4.0-11.0)
[2020-10-13 11:26] LABS: CALCIUM 8.4 mg/dL (8.5-10.1); CREATININE 0.9 mg/dL (0.6-1.3); POTASSIUM 3.7 mmol/L (3.5-5.1)
[2020-10-13 11:36] LABS: ALBUMIN 3.1 g/dL (3.4-5.0); MAGNESIUM 1.5 mg/dL (1.8-2.4); TOTAL BILIRUBIN 0.3 mg/dL (<0.1-1.0); TOTAL PROTEIN 6.6 g/dL (6.4-8.2)
[2020-10-13 12:04] LABS: URINE BILIRUBIN NEGATIVE (Negative); URINE BLOOD NEGATIVE (Negative); URINE CLARITY CLEAR; URINE COLOR YELLOW; URINE GLUCOSE-RANDOM NEGATIVE (Negative); URINE KETONES NEGATIVE (Negative); URINE LEUKOCYTES NEGATIVE (Negative); URINE NITRITE NEGATIVE (Negative); URINE PROTEIN NEGATIVE (Negative); URINE UROBILINOGEN 0.2 E.U./dl (0.2-1.0)
[2020-10-13] MEDS ORDERED: VANACOF DM LIQ240 ML PO (14:40)
[2020-10-13] MEDS ORDERED: IMODIUM A-D2 M1 PO (14:40)
[2020-10-13] MEDS ORDERED: BENTYL 10 MG CA10 M1 PO (14:40)
[2020-10-13 15:06] VITALS: BP 157/49
--- NOTE | 2020-10-13 17:05 | EKG ---
[place] [address] ELECTROCARDIOGRAM REPORT Name: DONNA BRUNNER Room: [place] [address] ADM IN .R.#: [id number] Admission: 10/13/20 Attend Phys: Magaly Disla MD Discharge: Date of : 35 Date of Service: 10/13/20 1050 Report #: [id number] THIS REPORT FOR: //name// [facility] ED Test Date: 2020-10-13 Test Time: 10:50:07 Pat Name: DONNA BRUNNER Department: Room: [place] [address] Gender: F Layout Designer: CD : 1935 Requested By: Magaly Disla Order Number: [id number] Reading MD: Tobias Slade Measurements Intervals [place] Rate: 72 P: 59 [place]: 145 QRS: 49 QRSD: 94 T: 248 QT: 434 QTc: 476 Interpretive Statements Sinus rhythm Probable LVH with secondary repol abnrm Baseline wander in lead(s) I,II,III,aVR,aVF Compared to ECG 10/02/2020 11:26:57 No significant changes Electronically Signed On 10-13-2020 17:05:41 INTERLOCKING INSTALLER by Tobias Slade [email or web address] <ELECTRONICALLY SIGNED> By: Tobias Slade MD, FACC 10/13/20 1705 1050 1050 Tobias Slade MD, FAC /EPI
== END 2020-10-13 15:09 | disposition still patient (30) ==
LOC: M.ERS 10:09 → M.TBA-ER 12:59 → M.ERS 12:59
PROVIDERS: Emergency Medicine
DX: R53.83 Other fatigue (principal); Z20.828 Contact with and (suspected) exposure to other viral communicable diseases; R19.7 Diarrhea, unspecified; R06.02 Shortness of breath; E11.9 Type 2 diabetes mellitus without complications; I10 Essential (primary) hypertension; Z88.0 Allergy status to penicillin; Z88.5 Allergy status to narcotic agent; Z79.899 Other long term (current) drug therapy; Z79.82 Long term (current) use of aspirin; Z90.710 Acquired absence of both cervix and uterus